=== PATIENT | male | born 1970 | race Caucasian/White ===

== ENCOUNTER 2017-08-23 12:32 | Observation (INO) | payer OTHER ==
[~2017-08-23] VITALS: Ht 185.4 cm; Wt 105.2 kg
[~2017-08-23 12:32] MED LIST: CARAFATE1 GM PO; LANSOPRAZOLE30 MG PO; NAPROSYN500 MG PO; ZANTAC150 MG PO; ZOFRAN4 MG PO
[2017-08-23 13:33] LABS: BASOPHIL (%) 0.4 % (0-1); EOSINOPHIL (%) 0.1 % (0-5); HEMOGLOBIN 15.9 G/DL (12.5-16.6); IMMATURE GRANULOCYTE (%) 0.4 % (0.0-0.7); LYMPHOCYTE (%) 18.3 % (15-42); LYMPHOCYTE COUNT 1.5 K/uL (1.0-2.8); MCH 31.5 PG (29.0-34.0); MCHC 36.1 G/DL (30.0-36.0); MCV 87.3 FL (86-99); MONOCYTE (%) 5.8 % (3-12); MONOCYTE COUNT 0.5 K/uL (0-0.8); NEUTROPHIL COUNT 6.3 K/uL (1.8-6.4); PLATELET COUNT 182 K/uL (156-360); RBC DIS.WIDTH-CV 12.5 % (11.8-14.6); RBC DIS.WIDTH-SD 40.2 % (39-53); RED BLOOD COUNT 5.04 M/uL (4.00-5.50); WHITE BLOOD COUNT 8.3 K/uL (4.1-10.2)
[2017-08-23 13:41] LABS: ALBUMIN 4.1 g/dL (3.2-4.8)
[2017-08-23 13:42] LABS: CHLORIDE 106 mEq/L (99-109); POTASSIUM 4.2 mEq/L (3.7-5.4); SODIUM 141 mEq/L (136-147)
[2017-08-23 13:44] LABS: GLUCOSE 108 mg/dL (70-99); TOTAL PROTEIN 6.6 g/dL (6.4-8.3)
[2017-08-23 13:46] LABS: TOTAL BILIRUBIN 0.9 mg/dL (0.0-1.0)
[2017-08-23 13:47] LABS: ALKALINE PHOSPHATASE 59 IU/L (3-129); GFR ESTIMATE (CALCULATED) > 59 mL/min/ (58.99-99999)
[2017-08-23 13:49] LABS: AST (GOT) 17 IU/L (2-34); UREA NITROGEN (BUN) 16 mg/dL (9-23)
[2017-08-23 13:50] LABS: ALT (GPT) 16 IU/L (3-49)
[2017-08-23 13:56] LABS: TROP-I INTERPRETATION NEGATIVE; TROPONIN-I < 0.01 ng/mL (0.0-0.30)
[2017-08-23 15:06] LABS: HDL CHOLESTEROL 48 MG/DL (Desirable>=40); LDL CHOLESTEROL 114 mg/dL (Desirable<100); NON-HDL CHOLESTEROL 136 mg/dL (Desirable<160); TOTAL CHOLESTEROL 184 mg/dL (Desirable<200); TRIGLYCERIDES 110 MG/DL (Normal: <150)
[2017-08-23] MEDS ORDERED: ANUCORT-HC25 MG PR (15:59)
[2017-08-23] MEDS ORDERED: CARAFATE1 GM PO (16:00)
[2017-08-23 16:23] VITALS: BP 138/71
[2017-08-23 18:52] VITALS: BP 122/83
[2017-08-23 20:54] LABS: TROP-I INTERPRETATION NEGATIVE; TROPONIN-I < 0.01 ng/mL (0.0-0.30)
[2017-08-24 00:34] VITALS: BP 123/76
[2017-08-24 02:33] LABS: TROP-I INTERPRETATION NEGATIVE; TROPONIN-I < 0.01 ng/mL (0.0-0.30)
[2017-08-24 04:18] VITALS: BP 123/72
[2017-08-24 08:04] VITALS: BP 149/71
[2017-08-24 10:54] LABS: HEMOGLOBIN A1c (GLYCOHEMOGLOB) 5.1 % (Below 5.7)
[2017-08-24 16:45] VITALS: BP 126/78
[2017-08-24 19:00] VITALS: BP 124/85
== END 2017-08-24 23:13 | disposition home or self-care (01) ==
LOC: EME 12:32 → EDOF 15:03 → 5WEST 15:03 → EDOF 15:03 → ENRESERV 15:09 → 5WEST 16:11
PROVIDERS: Emergency Medicine; Internal Medicine
DX: M50.10 Cervical disc disorder with radiculopathy, unspecified cervical region (principal); R51 Headache; F17.200 Nicotine dependence, unspecified, uncomplicated; J45.909 Unspecified asthma, uncomplicated; K21.9 Gastro-esophageal reflux disease without esophagitis; Z88.0 Allergy status to penicillin
CPT/HCPCS: 70450; 70551; 72125; 80053; 80061; 81003; 83036; 84484; 85025; 93005; 93306; 93880; 99281; 99285; G0378